=== PATIENT | male | born 1990 | race Caucasian/White ===

== ENCOUNTER → 2022-07-19 | Outpatient (CLI) | payer BC ==
--- NOTE | 2022-07-19 22:13 | US ---
EXAMINATION TYPE: US scrotum with doppler. Grayscale and color Doppler Duplex imaging performed of justin doss scrotum. DATE OF EXAM: 07/19/2022 COMPARISON: NONE CLINICAL HISTORY: N50.812 LEFT TESTICULAR PAIN. Pain. Patient feels lump left testicle. EXAM MEASUREMENTS: TESTICLES: Right Testicle: 4.3 x 3.1 x 2.1 cm Left Testicle: 3.9 x 2.9 x 2.2 cm EPIDIDYMIS HEAD: Right Epididymis: 0.6 x 0.9 x 1.2 cm Left Epididymis: 0.6 x 1.3 x 1.0 cm Doppler performed to assess for testicular vascularity; bilateral color flow and waveforms are seen. Presence of hydroceles: Right: 1.7 x 1.3 x 0.5 cm. Presence of varicoceles: Prominent vessels seen on the left. These are seen at patient's area of con cern/palpable area as well. IMPRESSION: 1. Mild vessels which do not meet criteria for varicocele on the left. 2. Arterial and venous spectral waveforms to the bilateral testicles. 3. Trace right hydrocele versus physiologic fluid.
== END | disposition home or self-care (01) ==
LOC: RADUSWWP 16:06
PROVIDERS: ATTEND Family Medicine
DX: N50.812 Left testicular pain (principal)
CPT/HCPCS: 76870; 93975